=== PATIENT | male | born 1985 | race Caucasian/White ===

== ENCOUNTER 2023-05-04 14:22 | Outpatient (REF) | payer MEDICAID, SELFPAY ==
[2023-05-04 17:34] LABS: MANUAL DIFF FLAG NO
[2023-05-04 17:39] LABS: Basophils Percent Auto 0.6 % (0-2); Eosinophils Absolute Auto 0.2 X10*3/uL (0.0-0.4); Eosinophils Percent Auto 2.8 % (0-4); Hematocrit 47.1 % (42.0-52.0); Hemoglobin 15.2 g/dl (14.0-18.0); Imm Gran Abs Auto 0.02 X10*3/uL (0.00-0.03); Imm Gran Pct Auto 0.3 % (0.0-0.4); Mean Corpuscular HGB Conc 32.3 g/dl (31.0-36.0); Mean Corpuscular Hemoglobin 30.2 pg (27.0-33.0); Mean Corpuscular Volume 93.6 fL (80.0-98.0); Mean Platelet Volume 10.9 fL (9.4-12.4); Monocytes Absolute Auto 0.8 X10*3/uL (0.1-1.2); Monocytes Percent Auto 11.4 % (2-11); Neutrophils Absolute Auto 4.1 x10*3/uL (2.0-8.3); Neutrophils Percent Auto 56.9 % (45-73); Platelet Count 314 X10*3/uL (160-400); Red Blood Count 5.03 X10*6/uL (4.60-5.80); Red Cell Distribution Width 13.4 % (11.0-16.0); White Blood Count 7.3 X10*3/uL (4.8-10.8)
[2023-05-04 17:39] LABS: Appearance Urine Clear; Color Urine Dark Yellow; Glucose Urine UA Negative (Negative); Leukocyte Esterase Urine Negative (Negative); Nitrite Urine Negative (Negative); Specific Gravity - Urine >= 1.030 (1.005-1.025); Urine Blood Negative (Negative); Urine Ketones Trace mg/dL (Negative); Urine Protein Trace mg/dL (Neg-Trace)
[2023-05-04 18:00] LABS: Alanine Aminotransferase 15 U/L (0-40); Albumin Level 4.8 g/dL (3.5-5.0); Alkaline Phosphatase 83 U/L (39-117); Anion Gap 15 (12-20); Aspartate Amino Transferase 25 U/L (5-37); Bilirubin Total 0.4 mg/dL (0.0-1.0); Blood Urea Nitrogen 15 mg/dL (9-16); Calcium 9.5 mg/dL (8.4-10.2); Carbon Dioxide 26 mmol/L (22-29); Chloride 105 mmol/L (96-108); Cholesterol 157 mg/dL (<200); Estimated Glomerular Filt Rate > 60; Glucose Random 60 mg/dL (60-115); HDL Cholesterol 64 mg/dL (>40); LDL Cholesterol Calculated 82 mg/dL (<100); Potassium 3.4 mmol/L (3.3-5.1); Sodium 143 mmol/L (135-145); Total Protein 7.9 g/dL (6.5-8.0); Triglycerides 55 mg/dL (<150)
[2023-05-05 03:26] LABS: Syphilis Screen Reactive (Nonreactive)
[2023-05-05 03:31] LABS: CT PCR NOT DETECTED (Not Detect.); NG PCR NOT DETECTED (Not Detect.)
[2023-05-05 03:49] LABS: ~HepC Num1 0.52 S/CO (0.00-0.79); ~Hepatitis C Antibody Nonreactive (Nonreactive)
[2023-05-07 12:09] LABS: HIV RNA PCR Qn Copies 144 copies/mL (NOT DETECTED); HIV RNA PCR Qn Log Copies 2.16 (NOT DETECTED)
[2023-05-07 21:33] LABS: TS Negative Control Passed; TS Panel A 2; TS Panel B 0; TS Positive Control Passed; TSpotTB Negative (Negative)
[2023-05-08 08:39] LABS: Absolute CD3 Count 1583 cells/uL (840-3060); Absolute CD4 Count 735 cells/uL (490-1740); Absolute CD8 Count 850 cells/uL (180-1170); Absolute Lymphocytes 1912 cells/uL (850-3900); CD4 CD8 Ratio 0.86 (0.86-5.00); Percent CD3 Cells 83 % (57-85); Percent CD4 Cells 38 % (30-61); Percent CD8 Cells 44 % (12-42)
[2023-05-15 08:52] LABS: RPR Quantitative Reactive 1:2 (Nonreactive); T.Pallidum Particle Agg Test Reactive (Nonreactive)
== END 2023-05-04 14:23 | disposition home or self-care (01) ==
LOC: HO.CHCLDS 14:22
PROVIDERS: Visit Provider Internal Medicine
DX: Z11.3 Encounter for screening for infections with a predominantly sexual mode of transmission (principal); Z11.4 Encounter for screening for human immunodeficiency virus [HIV]; Z11.1 Encounter for screening for respiratory tuberculosis; B20 Human immunodeficiency virus [HIV] disease
CPT/HCPCS: 0353U; 36415; 80053; 80061; 81003; 85025; 86359; 86360; 86481; 86592; 86593; 86780; 86803; 87536

== ENCOUNTER 2023-06-06 19:57 | Outpatient (REF) | payer MEDICAID, SELFPAY | END 2023-06-06 19:58 | disposition home or self-care (01) | LOC: HO.CHCLNP 19:57 | PROVIDERS: Visit Provider Advanced Practice Midwife | DX: B20 Human immunodeficiency virus [HIV] disease (principal) | CPT/HCPCS: 88112 ==

== ENCOUNTER 2024-11-07 15:40 | Outpatient (REF) | payer MEDICAID, SELFPAY ==
[2024-11-07 16:28] LABS: MANUAL DIFF FLAG NO
[2024-11-07 16:39] LABS: Basophils Percent Auto 0.4 % (0-2); Eosinophils Percent Auto 0.6 % (0-4); Hematocrit 49.7 % (42.0-52.0); Hemoglobin 16.3 g/dl (14.0-18.0); Imm Gran Abs Auto 0.03 X10*3/uL (0.00-0.03); Imm Gran Pct Auto 0.6 % (0.0-0.4); Lymphocytes Absolute Auto 1.3 X10*3/uL (1.2-4.9); Lymphocytes Percent Auto 27.1 % (20-40); Mean Corpuscular HGB Conc 32.8 g/dl (31.0-36.0); Mean Corpuscular Hemoglobin 28.6 pg (27.0-33.0); Mean Corpuscular Volume 87.2 fL (80.0-98.0); Monocytes Absolute Auto 0.5 X10*3/uL (0.1-1.2); Monocytes Percent Auto 10.2 % (2-11); Neutrophils Absolute Auto 2.8 x10*3/uL (2.0-8.3); Neutrophils Percent Auto 61.1 % (45-73); Platelet Count 282 X10*3/uL (160-400); Red Cell Distribution Width 12.8 % (11.0-16.0); White Blood Count 4.6 X10*3/uL (4.8-10.8)
[2024-11-07 16:46] LABS: Alanine Aminotransferase 24 U/L (0-40); Alkaline Phosphatase 108 U/L (39-117); Anion Gap 13 (12-20); Aspartate Amino Transferase 20 U/L (5-37); Bilirubin Total 0.4 mg/dL (0.0-1.0); Blood Urea Nitrogen 11 mg/dL (9-16); Calcium 9.7 mg/dL (8.4-10.2); Carbon Dioxide 28 mmol/L (22-29); Chloride 107 mmol/L (96-108); Cholesterol 149 mg/dL (<200); Estimated Glomerular Filt Rate > 60; Glucose Random 94 mg/dL (60-115); HDL Cholesterol 55 mg/dL (>40); LDL Cholesterol Calculated 65 mg/dL (<100); Potassium 3.8 mmol/L (3.3-5.1); Sodium 144 mmol/L (135-145); Total Protein 8.6 g/dL (6.5-8.0); Triglycerides 146 mg/dL (<150)
--- OUTSIDE RECORDS SUMMARY | 2024-11-07 16:57 | XMS_ITS | Clinical Summary ---
Author Organization [facility] ity Address [address] [place] [address] Care Team Providers Care Indigo Vat Tender Cloth Name Role Phone Mati Cain MD Primary Care Provider [phone] Family History Relation Name Status Comments Brother Alive 1,healthy Father Alive healthy Mother Alive healthy Sister Alive 2,healthy Social History Tobacco Use Types Packs/Day Years Used Date Smoking Tobacco: Every Day Cigarettes Alcohol Use Standard Drinks/Week Comments Yes 0 (1 standard drink = 0.6 oz pur e alcohol) Sex and Gender Information Value Date Recorded Sex Assigned at Not on file Legal Sex Male 2:30 AM EST Gender Identity Not on file Sexual Orientation Not on file Obstetrics History Plan of Treatment Health Maintenance Due Date Last Done Comments DTaP,Tdap,and Td Vaccines (1 - Tdap) 2005 Hepatitis B Vaccines (1 of 3 - 19+ 3-dose series) 2005 COVID-19 Vaccine (2023-2 5 season) 2024 Influenza Vaccine (Season Ended) 2025 HIB Vaccines Aged Out No longer eligi ble based on patient's age to complete this topic HPV Vaccines Aged Out No longer eligi ble based on patient's age to complete this topic Hepatitis A Vaccines Aged Out No long er eligible based on patient's age to complete this topic IPV Vaccines Aged Out No longer eligi ble based on patient's age to complete this topic MMR Vaccines Aged Out No longer eligi ble based on patient's age to complete this topic Meningococcal ACWY Vaccine Aged Out N o longer eligible based on patient's age to complete this topic Meningococcal B Vacine Aged Out No lo nger eligible based on patient's age to complete this topic Pneumococcal Vaccine: Pediat rics (0 to 5 Years) and At-Risk Patients (6 to 64 Years) Aged Out No longer eligible b ased on patient's age to complete this topic RSV Immunization Patients Un beatriz 20 months Aged Out No longer eligible b ased on patient's age to complete this topic Varicella Vaccines Aged Out No longer eligible based on patient's age to complete this topic Care Teams Indigo Vat Tender Cloth Relationship Specialty Start Date End Date Mati Cain [facility] [address] [facility] [place] PCP - General 01/07/09
[2024-11-07 18:19] LABS: Reflex LDLD? No
[2024-11-08 08:05] LABS: ~HepC Num1 0.44 S/CO (0.00-0.79); ~Hepatitis C Antibody Nonreactive (Nonreactive)
[2024-11-08 08:07] LABS: ~HepC Num1 0.39 S/CO (0.00-0.79); ~Hepatitis C Antibody Nonreactive (Nonreactive)
[2024-11-08 15:09] LABS: RPR Rapid Plasma Reagin REACTIVE (NON-REACTIVE)
[2024-11-10 08:09] LABS: HIV RNA PCR Qn Copies 24300 copies/mL (NOT DETECTED); HIV RNA PCR Qn Log Copies 4.39 (NOT DETECTED)
[2024-11-10 21:33] LABS: TS Negative Control Passed; TS Panel A 1; TS Panel B 0; TS Positive Control Passed; TSpotTB Negative (Negative)
[2024-11-13 16:02] LABS: Absolute CD3 Count 1115 cells/uL (840-3060); Absolute CD4 Count 404 cells/uL (490-1740); Absolute CD8 Count 729 cells/uL (180-1170); Absolute Lymphocytes 1215 cells/uL (850-3900); CD4 CD8 Ratio 0.55 (0.86-5.00); Percent CD3 Cells 92 % (57-85); Percent CD4 Cells 33 % (30-61); Percent CD8 Cells 60 % (12-42)
[2024-11-20 04:24] LABS: Estradiol Ultra Sensitive 23 pg/mL (< OR = 29)
[2024-11-21 16:34] LABS: Testosterone, Total 471 ng/dL (250-1100)
== END 2024-11-07 15:41 | disposition home or self-care (01) ==
LOC: HO.HHCL 15:40
PROVIDERS: Visit Provider Internal Medicine
DX: B20 Human immunodeficiency virus [HIV] disease (principal); F64.9 Gender identity disorder, unspecified
CPT/HCPCS: 36415; 80053; 80061; 82550; 82670; 84403; 85025; 86359; 86360; 86481; 86592; 86593; 86803; 87536

== ENCOUNTER 2024-12-02 16:02 | Outpatient (REF) | payer MEDICAID, SELFPAY ==
--- OUTSIDE RECORDS SUMMARY | 2024-12-02 18:44 | XMS_ITS | Clinical Summary ---
Author Organization [facility] ity Address [address] [place] [address] Care Team Providers Care Harbor Tug Captain Name Role Phone Mati Cain MD Primary Care Provider [phone] Family History Relation Name Status Comments Brother [...] age to complete this topic Meningococcal B Vaccine Aged Out No l onger eligible based on patient's age to complete [...] age to complete this topic Care Teams Harbor Tug Captain Relationship Specialty Start Date End Date Mati Cain MD [address] [facility] [place] PCP - General 01/07/09
[2024-12-03 13:08] LABS: RPR Rapid Plasma Reagin REACTIVE (NON-REACTIVE)
== END 2024-12-02 16:03 | disposition home or self-care (01) ==
LOC: HO.HHCL 16:02
PROVIDERS: Visit Provider Internal Medicine
DX: Z21 Asymptomatic human immunodeficiency virus [HIV] infection status (principal)
CPT/HCPCS: 36415; 86592; 86593

== ENCOUNTER 2025-03-11 16:09 | Outpatient (REF) | payer MEDICAID, SELFPAY ==
--- OUTSIDE RECORDS SUMMARY | 2025-03-11 16:17 | XMS_ITS | Clinical Summary ---
Author Organization [facility] Address [address] [address] Phone Care Team Providers Care Lodging Facilities Manager Name Role Phone Butch Tamayo MD Primary Care Pr ovider Sarah Lott SHELVING SUPERVISOR Unavailable Allergies Active Allergy Reactions Criticality Noted Date Comments Cat Hair Standardized Allergenic Extract 08/28/2017 Other 05/16/2019 seasonal Medications emtricitabine-ri lpivirine-tenofo vir alafenamide (ODEFSEY) 200-25-25 mg tablet Active spironolactone (ALDACTONE) 50 MG tablet 1 tablet PO, BID 60 tablet 11 08/28/2017 Active medroxyPROGESTER one (PROVERA) 10 MG tablet 1 tablet daily PO 30 tablet 11 08/28/2017 Active estradiol cypionate (DEPO-ESTRADIOL) 5 mg/mL injection Inject 0.5 mL (2.5 mg total) into the muscle once a week. 5 mL 11 08/28/2017 Active finasteride (PROSCAR) 5 mg tablet Take 5 mg by mouth daily. Active multivitamins capsule Take 1 capsule by mouth daily. Active minoxidil (ROGAINE TOP) by Topical (Top) route. 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 Not on anna e 12/02/2022 Are you concerned about learning? Not on file 12/02/2022 No 12/02/2022 No 12/02/2022 Digital Access Answer Date Recorded No 01/03/2023 No 01/03/2023 No 01/03/2023 Reliable internet access at home? Not on file 01/03/2023 Device with a working camera? Not on file Comments Unknown Sex and Gender Information Value Date Recorded Sex Assigned at Choose not to disclose 1:58 PM EST Legal Sex Male 1:54 PM EST Gender Identity Female 10/03/2018 1:58 PM EST Sexual Orientation Something else 11/09/2021 2: 41 PM EDT Last Filed Vital Signs Vital Sign Reading Time Taken Comments Blood Pressure 119/73 05/22/2019 4:00 PM EDT Pulse 58 05/22/2019 4:05 PM EDT Temperature 36.3 C (97.3 F) 05/22/2019 4:50 PM EDT Respiratory Rate 8 05/22/2019 4:05 PM EDT Oxygen Saturation 100% 05/22/2019 4:05 PM EDT Inhaled Oxygen Concentration - - Weight 63.5 kg (140 lb) 05/16/2019 9:57 AM EDT Height 167.6 cm (5' 6 ) 05/16/2019 9:57 AM EDT Body Mass Index 22.6 05/16/2019 9:57 AM EDT Plan of Treatment Health Maintenance Due Date Last Done Comments Adult Td,Tdap Booster 1986 LIPID PANEL 1986 POTASSIUM LEVEL 1986 DEPRESSION SCREENING 1998 SMOKING Hx and SMOKELESS TOB ACCO SCREENING 1999 HEPATITIS C SCREENING 2004 HIV ONE-TIME SCREENING (18-6 5 YEARS) 2004 HEPATITIS A VACCINES (1 of 2 - Risk 2-dose series) 2005 PNEUMOCOCCAL VACCINES (0-49 years) (1 of 2 - PCV) 2005 COVID-19 VACCINE (2023-2 5 season) 2024 HIB VACCINES Aged Out No longer eligi ble based on patient's age to complete this topic MENINGOCOCCAL VACCINES (ACWY) Aged Out No longer eligible based on patient's age to complete this topic MENINGOCOCCAL VACCINES (B) Aged Out N o longer eligible based on patient's age to complete this topic Medical Devices Implanted Type Area Product Safety Specialist Device Identifier Shelf Expiration Date Model / Serial / Lot Implant Breast 375cc Silicone Smooth Round Cohesive Silicone Shell Od12cm P4.8cm - [id number] Implanted:Qty: 1 on 05/22/2019 by Scout Martínez MD at [facility] Left: Breast MENTOR SARKIS 09/16/2023 [id number] / [id number] / Implant Breast 375cc Silicone Smooth Round Cohesive Silicone Shell Od12cm P4.8cm - [id number] Implanted:Qty: 1 on 05/22/2019 by Scout Martínez MD at [facility] Right: Breast MENTOR SARKIS 10/11/2023 [id number] / [id number] / Sizer Breast 11.3cm 4.8 330 Implant [place] Saline Silicone Elastomer Profile High Smooth Round - [id number] Implanted:Qty: 1 on 05/22/2019 by Scout Martínez MD at [facility] MENTOR SARKIS [id number] / / Description:Sizer-placed in patient then removed Insurance [facility] C3 ACO [facility] C3 ACO Advance Directives For more information, please contact: [phone] (9AM - 5PM Kristin/[facility], Monday-Monday) * Full Code (Presumed) (Latest Code Status on File) Date Activated Date Inactivated Comments 05/22/2019 10:04 AM 05/22/2019 7:18 PM Care Teams Lodging Facilities Manager Relationship Specialty Start Date End Date Butch Tamayo MD PCP - General Internal Medicine 10/03/18 Sarah Lott FNP [address] [place] [address] [email or web address] 10/03/18 Additional Source Comments The information contained in this document represents components of the legal health record. It is not the complete legal health record.[facility]
--- OUTSIDE RECORDS SUMMARY | 2025-03-11 16:17 | XMS_ITS | Clinical Summary ---
Author Organization [facility] ity Address [address] [place] [address] Care Team Providers Care Teacher Music Name Role Phone Mati Cain MD Primary Care Provider [phone] Family History Relation Name Status Comments Brother [...] 2005 COVID-19 Vaccine (2023-2 5 season) 2024 Depression Screening 08/07/2024 Influenza Vaccine (#1) 2025 HIB Vaccines Aged Out No longer [...] 5 Years) and At-Risk Patients (6 to 49 Years) Aged Out No longer eligible b ased on patient's age to complete this topic RSV Immunization Patients Un beatriz 20 months Aged Out No longer eligible b ased on patient's age to complete this topic Varicella Vaccines Aged Out No longer eligible based on patient's age to complete this topic Care Teams Teacher Music Relationship Specialty Start Date End Date Mati Cain MD [address] [facility] [place] PCP - General 01/07/09
[2025-03-11 17:51] LABS: CT PCR Urine NOT DETECTED (Not Detect.); NG PCR Urine NOT DETECTED (Not Detect.)
[2025-03-12 17:12] LABS: C.Trachomatis RNA TMA, Rectal DETECTED (NOT DETECTED); N.Gonorrhoeae RNA TMA, Rectal NOT DETECTED (NOT DETECTED)
== END 2025-03-11 16:10 | disposition home or self-care (01) ==
LOC: HO.HHCLNP 16:09
PROVIDERS: Visit Provider Advanced Practice Midwife
DX: Z11.3 Encounter for screening for infections with a predominantly sexual mode of transmission (principal); Z11.8 Encounter for screening for other infectious and parasitic diseases; Z21 Asymptomatic human immunodeficiency virus [HIV] infection status
CPT/HCPCS: 36415; 87491; 87591; 88112

== ENCOUNTER 2025-04-18 15:10 | Outpatient (REF) | payer MEDICAID, SELFPAY ==
--- OUTSIDE RECORDS SUMMARY | 2025-04-18 17:36 | XMS_ITS | Encounter Summary ---
Author Organization [facility] Address [address] [place], [place] [id number] Phone Care Team Providers Care Handkerchief Sample Clerk Name Role Phone Butch Tamayo MD Primary Care Pr ovider Sarah Lott Unavailable Kash Katz MD Unavailable [phone] Sarah LottP Unavailable Encounter Details Date Type Department Care Team (Late st Contact Info) Description 05/22/2019 Procedure Pass [place] Admitting Dept - Virtual Department [address] [place] [address] [phone] Social History Tobacco Use Types Packs/Day Years Used Date Smoking Tobacco: Some Days Cigarettes Smokeless Tobacco: Former Comments:2-3 cigarettes/faisal h Alcohol Use Standard Drinks/Week Comments Not Currently 0 (1 standard drink = 0.6 oz pur e alcohol) Comments Unknown Sex and Gender Information Value Date Recorded Sex Assigned at Choose not to disclose 1:58 PM EST Legal Sex Male 1:54 PM EST Gender Identity Female 10/03/2018 1:58 PM EST Sexual Orientation Something else 11/09/2021 2: 41 PM EDT documented as of this encounter Plan of Treatment Not on file documented as of this encounter Visit Diagnoses Not on filedocumented in this encounter Care Teams Handkerchief Sample Clerk Relationship Specialty Start Date End Date Butch Tamayo MD PCP - General Internal Medicine 10/03/18 Sarah Lott FNP [address] [place] [address] 10/03/18 Kash Katz MD [address] [place] [address], [address] [place] [address] Historical LMR Provider 05/27/17 08/14/21 Sarah Lott FNP [address] [place] [address] Historical LMR Provider 05/27/17 08/14/21 documented as of this encounter Additional Source Comments The information contained in this document represents components of the legal health record. It is not the complete legal health record.[facility]
--- OUTSIDE RECORDS SUMMARY | 2025-04-18 17:36 | XMS_ITS | Clinical Summary ---
Author Organization [facility] Address [address] [address] Phone Care Team Providers Care Motor Vehicle Dispatcher Name Role Phone Butch Tamayo MD Primary Care Pr ovider Sarah Lott INSPECTOR PRODUCTION PLASTIC PARTS Unavailable [phone] Allergies Active Allergy Reactions Criticality Noted Date [...] smear of anus 08/28/2017 Endocrine disorder in mett-ju-fvtavr transgender person 08/28/2017 Family History Relation Status [...] years) (1 of 2 - PCV) 2005 INFLUENZA VACCINE (#1) 2025 COVID-19 VACCINE (2023-2 5 season) 2025 HIB VACCINES Aged Out No longer eligi ble based on patient's age to complete this topic MENINGOCOCCAL VACCINES (ACWY) Aged Out No longer eligible based on patient's age to complete this topic MENINGOCOCCAL VACCINES (B) Aged Out N o longer eligible based on patient's age to complete this topic Medical Devices Implanted Type Area Administrative Accountant Device Identifier Shelf Expiration Date Model / Serial / Lot Implant Breast 375cc Silicone Smooth Round Cohesive Silicone Shell Od12cm P4.8cm - [id number] Implanted:Qty: 1 on 05/22/2019 by Scout Martínez MD at [facility] Left: Breast MENTOR SARKIS 09/16/2023 [id number] / [id number] / Implant Breast 375cc Silicone Smooth Round Cohesive Silicone Shell Od12cm P4.8cm - [id number] Implanted:Qty: 1 on 05/22/2019 by Scout Martínez MD at [facility] Right: Breast MENTOR SARKIS 10/11/2023 [id number] / [id number] / Sizer Breast 11.3cm 4.8 330 Implant [place] Saline Silicone Elastomer Profile High Smooth Round - [id number] Implanted:Qty: 1 on 05/22/2019 by Scout Martínez MD at [facility] MENTOR SARKIS [id number] / / Description:Sizer-placed in patient then removed Insurance [facility] [address] [place] [address] [place] [address] C3 ACO Advance Directives For more information, please contact: [phone] (9AM - 5PM [facility], Monday-Monday) * Full Code (Presumed) (Latest Code Status on File) Date Activated Date Inactivated Comments 05/22/2019 10:04 AM 05/22/2019 7:18 PM Care Teams Motor Vehicle Dispatcher Relationship Specialty Start Date End Date Butch Tamayo MD PCP - General Internal Medicine 10/03/18 Sarah Lott FNP [address] [place] [address] 10/03/18 Additional Source Comments The information contained in this document represents components of the legal health record. It is not the complete legal health record.[facility]
--- OUTSIDE RECORDS SUMMARY | 2025-04-18 17:36 | XMS_ITS | Clinical Summary ---
Author Organization [facility] ity Address [address] [place] [address] Care Team Providers Care Central Office Equipment Engineer Name Role Phone Mati Cain MD Primary Care Provider [phone] Family History Relation Name Status Comments Brother [...] of 3 - 19+ 3-dose series) 2005 Depression Screening 08/07/2024 COVID-19 Vaccine ( - 2023-2 5 season) 2025 Influenza Vaccine (#1) 2025 HIB Vaccines Aged [...] age to complete this topic Care Teams Central Office Equipment Engineer Relationship Specialty Start Date End Date Mati Cain MD [facility] [place] PCP - General 01/07/09
[2025-04-19 09:38] LABS: Syphilis Screen Reactive (Nonreactive)
[2025-04-19 09:49] LABS: HBS Num1 138.27 mIU/mL (0-7.99); HBc Num1 0.31 S/CO (0.00-0.79); HBsAGNum1 0.52 S/CO (0.00-0.99); Hepatitis B Surface Antigen Negative (Negative); ~HepC Num1 0.31 S/CO (0.00-0.79); ~Hepatitis B Surface Antibody REACTIVE (Nonreactive); ~Hepatitis C Antibody Nonreactive (Nonreactive)
[2025-04-24 10:08] LABS: T.Pallidum Particle Agg Test Reactive (Nonreactive)
== END 2025-04-18 15:11 | disposition home or self-care (01) ==
LOC: HO.CHCLDS 15:10
PROVIDERS: Visit Provider Advanced Practice Midwife
DX: Z11.3 Encounter for screening for infections with a predominantly sexual mode of transmission (principal); Z11.59 Encounter for screening for other viral diseases
CPT/HCPCS: 36415; 86592; 86704; 86706; 86780; 86803; 87340

== ENCOUNTER 2025-06-03 13:24 | Outpatient (REF) | payer MEDICAID, SELFPAY ==
[2025-06-03 14:30] LABS: MANUAL DIFF FLAG NO
[2025-06-03 14:36] LABS: Hematocrit 39.7 % (42.0-52.0); Hemoglobin 13.3 g/dl (14.0-18.0); Imm Gran Abs Auto 0.01 X10*3/uL (0.00-0.03); Imm Gran Pct Auto 0.2 % (0.0-0.4); Lymphocytes Absolute Auto 1.4 X10*3/uL (1.2-4.9); Mean Corpuscular HGB Conc 33.5 g/dl (31.0-36.0); Mean Corpuscular Hemoglobin 29.4 pg (27.0-33.0); Mean Corpuscular Volume 87.8 fL (80.0-98.0); NRBC Abs Auto 0.000 X10*3/uL (0.0-0.012); NRBC Pct Auto 0.0 /100WBC (0.0-0.2); Platelet Count 299 X10*3/uL (160-400); Red Blood Count 4.52 X10*6/uL (4.60-5.80); White Blood Count 4.6 X10*3/uL (4.8-10.8)
[2025-06-03 14:57] LABS: Alanine Aminotransferase 19 U/L (0-40); Albumin Level 4.4 g/dL (3.5-5.0); Alkaline Phosphatase 79 U/L (39-117); Anion Gap 10 (12-20); Aspartate Amino Transferase 22 U/L (5-37); Blood Urea Nitrogen 15 mg/dL (9-16); Calcium 8.9 mg/dL (8.4-10.2); Carbon Dioxide 28 mmol/L (22-29); Chloride 108 mmol/L (96-108); Estimated Glomerular Filt Rate > 60; Potassium 3.8 mmol/L (3.3-5.1); Sodium 142 mmol/L (135-145); Total Protein 6.9 g/dL (6.5-8.0)
--- OUTSIDE RECORDS SUMMARY | 2025-06-03 17:17 | XMS_ITS | Encounter Summary ---
Author Organization [facility] Address [address] [place], [place] [phone] Phone Care Team Providers Care Woods Rider Name Role Phone Butch Tamayo MD Primary Care Pr ovider Sarah Lott Unavailable Kash Katz MD Unavailable [phone] Sarah LottP Unavailable Encounter Details Date Type Department Care Team (Late st Contact Info) Description 05/22/2019 Procedure Pass [place] Admitting Dept - Virtual Department [address] [place] [address] [phone] Social History Tobacco Use Types Packs/Day Years [...] on filedocumented in this encounter Care Teams Woods Rider Relationship Specialty Start Date End Date Butch Tamayo MD PCP - General Internal Medicine 10/03/18 Sarah Lott FNP [address] [place] [address] 10/03/18 Kash Katz MD [address] [place] [address], [address] [place] [address] Historical LMR Provider 05/27/17 08/14/21 Sarah Lott FNP [address] [place] [address] Historical LMR Provider 05/27/17 08/14/21 documented as of this encounter Additional Source Comments The information contained in this document represents components of the legal health record. It is not the complete legal health record.[facility]
--- OUTSIDE RECORDS SUMMARY | 2025-06-03 17:17 | XMS_ITS | Clinical Summary ---
Author Organization [facility] Address [address] [place] [address] Care Team Providers Care Engineer Sergeant Name Role Phone Mati Cain MD Primary Care Provider [phone] Family History Relation Name Status Comments Brother [...] of 3 - 19+ 3-dose series) 2005 HPV Vaccines (1 - 3-dose SCD M series) 2013 Depression Screening 08/07/2024 COVID-19 Vaccine ( - 2023-2 5 season) 2025 Influenza Vaccine (#1) 2025 RSV Immunization Adult Patie nts (1 - 1-dose 75+ series) 2061 HIB Vaccines Aged Out No longer eligi [...] age to complete this topic Care Teams Engineer Sergeant Relationship Specialty Start Date End Date Mati Cain MD [address] [place] [address] [place] PCP - General 01/07/09
--- OUTSIDE RECORDS SUMMARY | 2025-06-03 17:17 | XMS_ITS | Clinical Summary ---
Author Organization [facility] Address [address] [address] Phone Care Team Providers Care Distillery Worker Name Role Phone Butch Tamayo MD Primary Care Pr ovider Sarah Lott SERVICE STATION CONSOLE OPERATOR Unavailable Allergies Active Allergy Reactions Criticality Noted [...] smear of anus 08/28/2017 Endocrine disorder in cowt-zu-qetsea transgender person 08/28/2017 Family History Relation Status [...] 2005 INFLUENZA VACCINE (#1) 2025 COVID-19 VACCINE (2024-2 6 season) 2025 HIB VACCINES Aged Out No longer eligi ble based on patient's age to complete this topic MENINGOCOCCAL VACCINES (ACWY) Aged Out No longer eligible based on patient's age to complete this topic MENINGOCOCCAL VACCINES (B) Aged Out N o longer eligible based on patient's age to complete this topic Medical Devices Implanted Type Area Bellman Captain Device Identifier Shelf Expiration Date Model / Serial / Lot Implant Breast 375cc Silicone Smooth Round Cohesive Silicone Shell Od12cm P4.8cm - [id number] Implanted:Qty: 1 on 05/22/2019 by Scout Martínez MD at [facility] Left: Breast MENTOR SARKIS 09/16/2023 [id number] / [id number] / Implant Breast 375cc Silicone Smooth Round Cohesive Silicone Shell Od12cm P4.8cm - [id number] Implanted:Qty: 1 on 05/22/2019 by Scout Martínez MD at [facility] Right: Breast MENTOR SARKIS 10/11/2023 [id number] / [id number] / Sizer Breast 11.3cm 4.8 330 Implant [place] Saline Silicone Elastomer Profile High Smooth Round - [id number] Implanted:Qty: 1 on 05/22/2019 by Scout Martínez MD at [facility] MENTOR SARKIS [id number] / / Description:Sizer-placed in patient then removed Insurance [facility] C[address] [place] [address] [place] [address] C3 ACO Advance Directives For more information, please contact: [phone] (9AM - 5PM [facility], Monday-Monday) * Full Code (Presumed) (Latest Code Status on File) Date Activated Date Inactivated Comments 05/22/2019 10:04 AM 05/22/2019 7:18 PM Care Teams Distillery Worker Relationship Specialty Start Date End Date Butch Tamayo MD PCP - General Internal Medicine 10/03/18 Sarah Lott FNP [address] [place] [address] 10/03/18 Additional Source Comments The information contained in this document represents components of the legal health record. It is not the complete legal health record.[facility]
[2025-06-04 13:38] LABS: HIV RNA PCR Qn Copies 48 copies/mL (NOT DETECTED); HIV RNA PCR Qn Log Copies 1.68 (NOT DETECTED)
[2025-06-08 14:43] LABS: Absolute CD3 Count 1154 cells/uL (840-3060); Absolute CD8 Count 690 cells/uL (180-1170); Percent CD3 Cells 80 % (57-85); Percent CD8 Cells 48 % (12-42)
== END 2025-06-03 13:25 | disposition home or self-care (01) ==
LOC: HO.CHCLDS 13:24
PROVIDERS: Visit Provider Internal Medicine
DX: Z21 Asymptomatic human immunodeficiency virus [HIV] infection status (principal)
CPT/HCPCS: 36415; 80053; 85025; 86359; 86360; 87536